=== PATIENT | female | born 1965 | race Caucasian/White ===

== ENCOUNTER 2020-02-07 00:12 | Day surgery (SDC) | payer BC, SELFPAY ==
--- NOTE | ~2020-02-07 | XR_ITS ---
EXAMINATION: XR fluoroscopy no charge INDICATION: Left ureteral stone extraction TECHNIQUE: Three intraoperative fluoroscopic images are submitted for review. Total fluoroscopic time is 8.9 seconds. COMPARISON: None available FINDINGS: Toolsmith radiographs are unremarkable. No dilated loops of bowel are evident. Surgical clips i n the right upper quadrant are likely from prior cholecystectomy. IMPRESSION: 1. . Please refer to procedure note for full details. Reviewed, dictated and finalized at location A. UNT REVIEW SPECIALIST
[2020-02-07 07:41] VITALS: BMI 28.9
[2020-02-07 12:23] VITALS: BP 141/85; PULSE 70; RESP 20; TEMP 37.7; O2SAT 98
[2020-02-07] MEDS: LACTATED RINGERS 1,000 ML 30 ML IV CONT (12:50)
--- NOTE | 2020-02-07 12:57 | P.PNAN_ITS ---
Anes - Initial Pre Proc Eval Procedure: Operation Date: 02/07/20 14:30 Proposed Procedures p Cystoscopy, Left Ureteroscopy With Stone Extraction, Left Retrograde Pyelogram, Possible Left Stent Placement - Steven Andre MD s Possible Holmium Laser Procedure - Steven Andre MD Date/Time: 02/07/20 12:57 Surgeon: Steven Andre MD Pre Op Diagnosis: Left Ureteral Stone Patient Data Age: 54 Gender: F Height: 1.6 m Weight: 74 kg Allergies Allergy/AdvReac Type Severity Reaction Status Date / Time amoxicillin [From Augmentin] Allergy Severe Rash Verified 02/07/20 07:42 clavulanic acid Allergy Severe Rash Verified 02/07/20 07:42 [From Augmentin] Home Medications Medication Instructions Recorded Confirmed Type albuterol sulfate [ProAir HFA] 1 inh INHALATION QID PRN 02/07/20 02/07/20 History Patient hx anesthesia problems: none Family hx anesthesia problems: none [facility] Past Medical History Medical History (Updated 02/07/20 @ 13:01 by Rasheed Washington DO) COPD (chronic obstructive pulmonary disease) Polycystic liver disease Social History Social History Years smoked: 25 Smoking status: Current every day smoker Tobacco type: cigarettes Substance use: never Living arrangements: with family Gender identity (if verbalized by the patient): Female Spiritual care concerns: No Anes - Eval Final PreProcedure Day of Procedure 02/07/20 12:57 Patient weight: overweight Heart: regular rate and rhythm Lungs: clear to auscultation and normal air movement Airway: Mallampati scale class II Neurological: alert and oriented Last oral intake: >/= 8 hours ASA classification: III Emergent: no Anesthetic plan: proceed Anesthesia type and monitoring: general LMA and standard monitoring Informed Consent: The patient's anesthetic plan and its attendant risks and benefits were discussed with the patient/family/POA. Questions were solicited and answers provided to the satisfaction of the patient/family/POA.
--- NOTE | 2020-02-07 13:34 | WPDHPUPDATE1 ---
History and Physical Update Update Date/Time: 02/07/20 13:34 History and Physical has been reviewed, including an updated exam of the patient. There are NO changes in the patient's condition. Risks, benefits, and alternatives have been discussed and questions answered. Patient agrees to proceed with procedure.
[2020-02-07] MEDS: ceFAZolin 2 GM/D5W 50 ML 2 GM/50 ML BAG IVPB (13:45)
[2020-02-07] MEDS: KETOROLAC 30 MG/ML VIAL (*BKC) IV PUSH (14:10)
--- NOTE | 2020-02-07 14:16 | P.OP_ITS ---
Procedure Note - Detailed Date of procedure: 02/07/20 Pre-op diagnosis: Left Ureteral Stone Post-op diagnosis: same Procedure performed: Cystoscopy, left ureteroscopy with stone extraction Description of procedure: The patient was brought to the operative suite where she is prepped and draped in a routine sterile fashion while in the dorsal lithotomy position after the uneventful induction of a general LMA anesthetic. A 19F rigid cystoscope was placed in the bladder. The patient had no evidence of urethral stricture or bladder neck contracture. The bladder mucosa was endoscopically normal without hyperemia or neoplasm. There was a single, orthotopic ureteral orifice bilaterally. A 0.035 glidewire was advanced into the left renal pelvis under fluoroscopy. The distal ureter was dilated with an 8F/10F ureteral dilator. Ureteroscopy was undertaken with a short, tapered, semi-rigid ureteroscope and the stone was extracted with ease using a 1.9F Escape disposable stone basket. Due to the ease of this manipulation I opted not to place a ureteral stent. The patient's bladder was emptied and was taken to the recovery room having tolerated this procedure well. Anesthesia: GLMA Surgeon: Steven Andre MD Scrap Kettle Tender: None Drains: No Packing: No Pathology: yes (Left ureteral stone) Complications: No immediate complications Condition: stable Disposition: PACU
[2020-02-07 14:17] VITALS: BP 128/76; PULSE 87; RESP 16; TEMP 36.2; O2SAT 100
[2020-02-07] MEDS: LIDOCAINE HCL 2% GEL UROJET 10 ML PKG MUCOUS MEM (14:25)
[2020-02-07 14:30] VITALS: BP 122/68; PULSE 72; RESP 12; O2SAT 100
[2020-02-07 14:45] VITALS: BP 131/76; PULSE 63; RESP 12; O2SAT 99
[2020-02-07 14:53] VITALS: BP 140/78; PULSE 74; RESP 14
[2020-02-07 15:20] VITALS: BP 135/70; PULSE 66; RESP 14
== END 2020-02-07 15:24 | disposition home or self-care (01) ==
PROVIDERS: PCP Internal Medicine; Visit Provider Urology
PROC: (CPT 52352; principal; 2020-02-07 14:30)
DX: N20.1 Calculus of ureter (principal); J44.9 Chronic obstructive pulmonary disease, unspecified; Q61.3 Polycystic kidney, unspecified; F17.210 Nicotine dependence, cigarettes, uncomplicated
CPT/HCPCS: 52352; 82365; 88300; A9270; C1769; C1887; J0690; J1100; J1200; J1885; J2250; J2370; J2405; J2704; J3010; J7120; Q9966

== ENCOUNTER 2020-03-16 15:55 | Outpatient (CLI) | payer BC, SELFPAY ==
--- NOTE | ~2020-03-16 | XR_ITS ---
XR abdomen/kub 1V 03/16/2020 16:19 Indication: Bilateral kidney stones Procedure: KUB Comparison: No prior studies for comparison. Findings: Multiple left renal stones. Bowel gas pattern is nonobstructive. There are cholecystectomy clips. No acute osseous abnormality. Lung bases unremarkable. Impression: 1: Left nephrolithiasis. Reviewed, dictated and finalized at location A. S AND MERCHANDISING REPRESENTATIVE Impression: 1: Left nephrolithiasis.
== END 2020-03-16 15:56 | disposition home or self-care (01) ==
PROVIDERS: PCP Internal Medicine; Visit Provider Nurse Practitioner Adult Health
DX: N20.0 Calculus of kidney (principal)
CPT/HCPCS: 74018

== ENCOUNTER 2020-11-29 14:27 | Outpatient (CLI) | payer BC, SELFPAY ==
[2020-11-29 15:42] LABS: SARS-CoV-2 RNA PCR Negative (Negative)
== END 2020-11-29 14:28 | disposition home or self-care (01) ==
LOC: CHSLAB 14:30
PROVIDERS: PCP Internal Medicine; Visit Provider Internal Medicine
DX: Z20.822 Contact with and (suspected) exposure to COVID-19 (principal)
CPT/HCPCS: C9803; U0003; U0005

== ENCOUNTER 2021-01-14 10:30 | Outpatient (CLI) | payer BC, SELFPAY ==
[2021-01-14 11:29] LABS: Influenza A QL RT-PCR Negative (Negative); Influenza B QL RT-PCR Negative (Negative); SARS-CoV-2 RNA PCR Negative (Negative)
[2021-01-14 16:50] LABS: Basophils Absolute Auto 0.09 K/mm3 (0.00-0.10); Eosinophils Absolute Auto 0.32 K/mm3 (0.02-0.50); Eosinophils Percent Auto 3.4 % (1.0-6.0); Hematocrit 42.2 % (35.0-49.0); Hemoglobin 14.4 g/dL (12.0-15.0); Immature Granulocyte Absolute 0.02 K/mm3 (0.00-0.00); Immature Granulocyte Percent A 0.2 % (0.0-0.0); Lymphocytes Absolute Auto 3.27 K/mm3 (1.10-4.50); Lymphocytes Percent Auto 34.8 % (18.0-42.0); Mean Corpuscular HGB Conc 34.1 g/dL (32.0-36.0); Mean Corpuscular Hemoglobin 31.1 pg (27.0-31.0); Mean Corpuscular Volume 91.1 fL (78.0-102.0); Monocytes Absolute Auto 0.57 K/mm3 (0.10-0.90); Monocytes Percent Auto 6.1 % (2.0-11.0); Neutrophils Absolute Auto 5.1 K/mm3 (1.7-7.2); Neutrophils Percent Auto 54.5 % (50.0-70.0); Platelet Count Result 309 K/mm3 (150-420); Red Blood Count 4.63 M/mm3 (4.20-5.40); Red Cell Distribution Width 12.9 % (11.6-14.4); White Blood Count 9.4 K/mm3 (4.8-10.8)
[2021-01-14 17:29] LABS: Alanine Aminotransferase 15 U/L (14-59); Albumin Level 3.6 g/dL (3.4-5.0); Alkaline Phosphatase 99 U/L (46-116); Anion Gap 6 mmol/L (8-16); Aspartate Amino Transferase 12 U/L (15-37); Bilirubin,Total 0.2 mg/dL (0.00-1.00); Blood Urea Nitrogen 12 mg/dL (7-18); Carbon Dioxide 32 mmol/L (21-32); Chloride 106 mmol/L (98-108); Estimated Glomerular Filt Rate > 60; Glucose 88 mg/dL (70-99); Osmolality Calculated 296 mOsm/kg (285-295); Potassium 4.3 mmol/L (3.5-5.1); Sodium 144 mmol/L (136-145); Total Protein 6.6 g/dL (6.4-8.2)
[2021-01-14 17:32] LABS: CRP < 0.5 mg/dL (0.0-0.9)
[2021-01-16 22:39] LABS: Anti Cyclic Citrullinated Pept <16 Units (<20)
== END 2021-01-14 10:31 | disposition home or self-care (01) ==
PROVIDERS: PCP Internal Medicine; Visit Provider Internal Medicine
DX: M25.50 Pain in unspecified joint (principal); R53.83 Other fatigue; R11.0 Nausea; J06.9 Acute upper respiratory infection, unspecified; Z20.822 Contact with and (suspected) exposure to COVID-19
CPT/HCPCS: 36415; 80053; 84443; 85025; 86140; 86200; 87502; C9803; U0003; U0005

== ENCOUNTER 2021-03-22 11:47 | Outpatient (CLI) | payer BC, SELFPAY ==
--- NOTE | ~2021-03-22 | CT_ITS ---
EXAMINATION: CT abdomen pelvis wo con EXAM DATE: 03/22/2021 12:11 INDICATION: Flank pain and hematuria. TECHNIQUE: Spiral CT of the abdomen and pelvis was performed without contrast. Axial, coronal and sag ittal images were reviewed. The dose-length product (DLP) for this examination was 223.56 mGy-cm. T he exposure was tailored according to patient size (auto mA exposure control), and iterative reconstr uction (ASIR) was used as additional dose reduction technique. There is no prior study for compariso n. FINDINGS: Small left, punctate right nephrolithiasis. No ureteral stones or hydronephrosis. The there are scattered small left renal cysts and hemorrhagic cysts. The uterus is not identified and has spencer gallagher been surgically resected. The bladder is unremarkable. Numerous liver hypodensities with jose ons of confluence at the dome. Similar appearance on prior studies spleen, pancreas, adrenal glands a re unremarkable. Gallbladder is unremarkable. No biliary obstruction. There is no retroperitoneal o r pelvic lymphadenopathy. Small left inguinal fat-containing hernia. The appendix is normal. The stomach and small bowel are unremarkable. There is expected amount of c olonic stool. No free intraperitoneal gas. The heart is normal in size. There are no pericardial or pleural effusions. There is left lower lobe round 1.6 cm nodule with central coarse calcificatio n, granuloma. There are no osteoblastic or osteolytic lesions identified. IMPRESSION: 1. Small left, punctate right nephrolithiasis. 2. Numerous liver cysts. 3. No acute intra-abdominal findings. Reviewed, dictated and finalized at location B. ERLESS GRINDER TENDER
--- NOTE | ~2021-03-22 | XR_ITS ---
XR abdomen/kub 1V DATE: 03/22/2021 12:15 INDICATION: Acute left flank pain. TECHNIQUE: AP projection, 2 views history of kidney stones. COMPARISON: March 22, [address] abdomen pelvis FINDINGS: Surgical clips, right upper quadrant, consistent with cholecystectomy. Small calcifications overlie the lower pole left kidney, likely corresponding to nonobstructive lower pole left renal jose de jesus culi documented on today's CT abdomen pelvis examination. The psoas shadows are intact. No visceromegaly is evident. There is a prominent of fecal material in the ascending and transverse colon but no bowel obstruction . IMPRESSION: Probable faintly calcified lower pole left renal stones Reviewed, dictated and finalized at Location A. Reviewed, dictated and finalized at location A. RVISOR OF INSTRUCTION
== END 2021-03-22 11:48 | disposition home or self-care (01) ==
LOC: ANHIMG 11:55
PROVIDERS: PCP Internal Medicine; Visit Provider Urology
DX: N20.0 Calculus of kidney (principal); K76.89 Other specified diseases of liver
CPT/HCPCS: 74018; 74176

== ENCOUNTER 2021-05-13 17:05 | Emergency (ER) | payer BC, SELFPAY ==
--- NOTE | ~2021-05-13 | XR_ITS ---
EXAMINATION: XR chest 1V portable Exam Date/Time: 05/13/2021 17:25 CDT CLINICAL HISTORY: LT sided chest pain with SOB x 1 day Comparison: CT abdomen and pelvis 03/22/2021, chest 02/14/2019, XRT 06/11/2018 RESULT: Lines, tubes, and devices: Soft tissue anchors in the right humeral head. Lungs and pleura: Left lower lobe granuloma. No focal consolidation, large effusion, or pneumothorax . Cardiomediastinal silhouette: Stable cardiomediastinal silhouette. Other: No acute osseous or upper abdominal finding. IMPRESSION: No acute cardiopulmonary process. Reviewed, dictated and finalized at location K.
--- NOTE | ~2021-05-13 | CT_ITS ---
EXAMINATION: CTA chest PE protocol DATE: 05/13/2021 18:36 INDICATION: Left-sided chest pain with positive d-dimer. TECHNIQUE: Computed tomography angiography (CTA) of the chest was performed with 100 mL Omnipaque-350 intravenous contrast timed to evaluate the pulmonary arteries. Coronal maximum intensity projection 3D-reconstructions were created by the technologist. The dose-length product (DLP) was 306.52 mGy-cm. Automated exposure control and iterative reconstruction technique were employed. COMPARISON: CT chest 02/14/2019. FINDINGS: FINDINGS: Study quality: Slightly limited by late contrast phase, overall adequate. Pulmonary arteries: No pulmonary embolus. Thoracic aorta: Normal. Lung parenchyma and airways: Stable granulomas and mild emphysematous change. Thoracic inlet, axillae and chest wall: Unremarkable. Mediastinum: Normal. Heart and pericardium: No cardiomegaly or pericardial effusion. Coronary artery calcifications: None.. Pleura: Unremarkable. Upper abdomen: Small fat-containing Bochdalek hernia on the left. Innumerable hepatic and renal cysts . Previously described left nephrolith is no longer seen. Bones: No acute finding. IMPRESSION: No CT evidence of pulmonary embolus. Reviewed, dictated and finalized at location K.
[2021-05-13 17:10] VITALS: BP 131/85; PULSE 75; RESP 18; TEMP 36.4; O2SAT 98
--- NOTE | 2021-05-13 17:11 | ED.CHESTPAIN ---
HPI - Chest Pain General Chief Complaint: Chest Pain Stated Complaint: chest pain, numbness in jaw Time Seen by Provider: 05/13/21 17:11 Source: patient History of Present Illness HPI narrative: 50-year-old female, smoker with a history of COPD, polycystic liver disease presents to the ER with -- left-sided chest pain since last night. The pain is intermittent and unprovoked. Pain lasts for 1-2 minutes. The pain radiates to the left neck and left arm. -- Patient has nausea but no vomiting. -- Patient is tearful and anxious. She has had a history of a stress test in the past. MD complaint: chest pain Onset (ago): day(s) ( Started last night.) Timing of current episode: episodic Prior episodes: No Onset: during rest Pain location: left chest Pain radiation: left arm and neck Severity: moderate Quality: aching Relieving factors: nothing Exacerbating factors: nothing Associated symptoms: nausea Treatment prior to arrival: none Risk Factors Coronary artery disease risk factors: smoking history Related Data On Oral Contraceptives: No Home Medications Medication Instructions Recorded Confirmed No Home Medications 05/13/21 05/13/21 Allergies Allergy/AdvReac Type Severity Reaction Status Date / Time amoxicillin [From Augmentin] Allergy Severe Rash Verified 05/13/21 17:19 clavulanic acid Allergy Severe Rash Verified 05/13/21 17:19 [From Augmentin] Review of Systems Review of Systems: All systems reviewed & are unremarkable except as noted in HPI and below Constitutional: Constitutional: Reports as per HPI and Reports no additional constitutional complaints Eyes: Eyes: Reports as per HPI and Reports no additional eye complaints ENT: Reports system reviewed and no additional complaints, except as documented and Reports as per HPI Cardiovascular: Cardiovascular: Reports as per HPI, Reports no additional cardiovascular complaints, Reports chest pain and Reports radiating jaw, neck or arm pain Respiratory: Respiratory: Reports as per HPI and Reports no additional respiratory complaints Gastrointestinal: Gastrointestinal: Reports as per HPI, Reports no additional gastrointestinal complaints and Reports nausea Genitourinary: Genitourinary: Reports no additional female genitourinary complaints and Reports as per HPI Musculoskeletal: Musculoskeletal: Reports no additional musculoskeletal complaints and Reports as per HPI Integumentary/Breasts: Skin/Breast: Reports system reviewed and no additional complaints, except as docu and Reports as per HPI Neurologic: Reports system reviewed and no additional complaints, except as documented and Reports as per HPI Psychiatric: Psychiatric: Reports no additional psychiatric complaints and Reports anxiety Endocrine: Endocrine: Reports no additional endocrine complaints and Reports as per HPI Hematologic/Lymphatic: Hematologic/Lymphatic: Reports no additional hematologic/lymphatic complaints and Reports as per HPI Allergic/Immunologic: Allergic/Immunologic: Reports no additional allergic/immunologic complaints and Reports as per HPI [facility] Past Medical History Medical History COPD (chronic obstructive pulmonary disease) Polycystic liver disease Social History Social History Years smoked: 25 Smoking status: Current every day smoker Tobacco type: cigarettes Substance use: never Gender identity (if verbalized by the patient): Female Spiritual care concerns: No Exam Const: General: no acute distress and alert Orientation/consciousness: patient oriented x3 HENMT: Head: normal to inspection Eyes: Conjunctivae: conjunctivae normal Pupils: Equal, round and reactive pupils present Neck: Neck: normal visual inspection, no lymphadenopathy and no meningeal signs Other: tenderness on palpation of the left sternomastoid muscle. Chest: Chest pal
--- NOTE | 2021-05-13 17:12 | ECG_ITS ---
Measurements Intervals [place] Rate: 70 P: 71 OR: 143 QRS: 78 QRSD: 101 T: 60 QT: 363 QTc: 392 Interpretive Statements SINUS RHYTHM COMPARED TO ECG 05/27/2018 07:42:15 NO SIGNIFICANT CHANGES Electronically Signed On 05-15-2021 14:13:55 CDT by Yareli Muñoz M.D.
[2021-05-13] MEDS: ALPRAZolam (*CRX) 0.5 MG TABLET PO (17:28)
[2021-05-13] MEDS: ASPIRIN 81 MG CHEWABLE TABLET 324 MG PO (17:28)
[2021-05-13 17:39] LABS: Basophils Absolute Auto 0.06 K/mm3 (0.00-0.10); Basophils Percent Auto 0.7 % (0.0-1.0); Eosinophils Absolute Auto 0.21 K/mm3 (0.02-0.50); Eosinophils Percent Auto 2.4 % (1.0-6.0); Hematocrit 41.5 % (35.0-49.0); Hemoglobin 13.3 g/dL (12.0-15.0); Immature Granulocyte Absolute 0.03 K/mm3 (0.00-0.00); Immature Granulocyte Percent A 0.3 % (0.0-0.0); Lymphocytes Absolute Auto 2.47 K/mm3 (1.10-4.50); Lymphocytes Percent Auto 27.7 % (18.0-42.0); Mean Corpuscular Volume 96.7 fL (78.0-102.0); Mean Platelet Volume 10.2 fl (9.2-11.8); Monocytes Absolute Auto 0.61 K/mm3 (0.10-0.90); Monocytes Percent Auto 6.8 % (2.0-11.0); Neutrophils Absolute Auto 5.5 K/mm3 (1.7-7.2); Neutrophils Percent Auto 62.1 % (50.0-70.0); Platelet Count Result 269 K/mm3 (150-420); Red Blood Count 4.29 M/mm3 (4.20-5.40); Red Cell Distribution Width 13.5 % (11.6-14.4); White Blood Count 8.9 K/mm3 (4.8-10.8)
[2021-05-13 17:55] LABS: Partial Thromboplastin Time 28.5 SEC (23.90-30.70); Prothrombin Time 10.2 Seconds (9.50-12.10)
[2021-05-13 17:59] LABS: D Dimer 0.57 mg/L (0.19-0.50)
[2021-05-13 18:00] VITALS: BP 125/77; PULSE 66; RESP 16; TEMP 36.1; O2SAT 97
[2021-05-13 18:01] LABS: SARS-CoV-2 Ag Negative (Negative)
[2021-05-13 18:02] LABS: Lactic Acid Reflex 0.7 mmol/L (0.4-2.0)
[2021-05-13 18:05] LABS: Alanine Aminotransferase 16 U/L (14-59); Albumin Level 3.3 g/dL (3.4-5.0); Alkaline Phosphatase 93 U/L (46-116); Anion Gap 6 mmol/L (8-16); Aspartate Amino Transferase < 10 U/L (15-37); Bilirubin,Total 0.2 mg/dL (0.00-1.00); Blood Urea Nitrogen 19 mg/dL (7-18); Calcium 8.6 mg/dL (8.5-10.1); Carbon Dioxide 30 mmol/L (21-32); Chloride 107 mmol/L (98-108); Estimated CRCL calculation 73 ml/min; Estimated Glomerular Filt Rate > 60; Glucose 98 mg/dL (70-99); NT Pro B Type Natriuretic Pept 13 pg/mL (0-125); Osmolality Calculated 298 mOsm/kg (285-295); Potassium 3.7 mmol/L (3.5-5.1); Sodium 143 mmol/L (136-145); Thyroid Stimulating Hormone 0.73 uIU/mL (0.36-3.74); Total Protein 6.2 g/dL (6.4-8.2); Troponin I 4.3 ng/L (0.00-60.4)
[2021-05-13] MEDS: ONDANSETRON HCL ODT 4 MG TABLET PO (18:18)
[2021-05-13] MEDS: LACTATED RINGERS 1,000 ML 500 ML IV CONT (18:41)
[2021-05-13 19:18] VITALS: BP 123/59; PULSE 63; RESP 16; O2SAT 95
[2021-05-13 19:42] VITALS: BP 134/62; PULSE 70; RESP 16; TEMP 36.7; O2SAT 97
== END 2021-05-13 19:57 | disposition home or self-care (01) ==
PROVIDERS: Emergency Provider Internal Medicine Critical Care Medicine; PCP Internal Medicine
DX: R07.9 Chest pain, unspecified (principal); F41.9 Anxiety disorder, unspecified; Z20.822 Contact with and (suspected) exposure to COVID-19
CPT/HCPCS: 36415; 71045; 71275; 80053; 83605; 83880; 84443; 84484; 85025; 85380; 85610; 85730; 87426; 93005; 96360; 99284; A9270; C9803; J7120; Q9967

== ENCOUNTER 2022-04-14 08:11 | Outpatient (CLI) | payer BC, SELFPAY ==
--- NOTE | ~2022-04-14 | XR_ITS ---
EXAMINATION: XR foot RT min 3V DATE: 04/14/2022 08:29 INDICATION: Right foot pain TECHNIQUE: Dorsoplantar, lateral, and 2 oblique views of the right foot were obtained. COMPARISON: None. FINDINGS: There is no acute fracture. There is mild to moderate osteoarthritis at the second through fourth tarsometatarsal joints. There is also mild osteoarthritis of multiple interphalangeal joints. The soft tissues are unremarkable. IMPRESSION: 1. Polyarticular osteoarthritis. Reviewed, dictated and finalized at location A. MACY TECHNICIAN PER DIEM
== END 2022-04-14 08:12 | disposition home or self-care (01) ==
LOC: CHSIMG 08:14
PROVIDERS: PCP Internal Medicine; Visit Provider Internal Medicine
DX: M79.671 Pain in right foot (principal); M19.071 Primary osteoarthritis, right ankle and foot
CPT/HCPCS: 73630

== ENCOUNTER 2022-06-10 18:23 | Emergency (ER) | payer BC, SELFPAY ==
--- NOTE | ~2022-06-10 | CT_ITS ---
EXAMINATION: CT abdomen pelvis w con DATE: 06/10/2022 20:55 INDICATION: recent stones, R flank as well as RLQ TTP TECHNIQUE: Computed tomography (CT) of the abdomen and pelvis was performed with 100 mL Omnipaque-350 intravenous contrast. Automated exposure control and iterative reconstruction technique were employe d. The dose-length product was 618.68 mGy-cm. COMPARISON: 03/22/2021. FINDINGS: Lower thorax: Lingular hamartoma. Uncomplicated small fat-containing left diaphragmatic hernia. Liver: Innumerable cysts and lesions that are too small to characterize but also likely represent cys ts. Biliary/Gallbladder: Gallbladder is absent. No bile duct dilation. Pancreas: No mass or duct dilation. Spleen: Normal. Adrenals:No mass. Kidneys: Innumerable cysts and lesions that are too small to characterize but also likely represent c ysts. Bilateral nonobstructing calculi. No obstructing calcification, suspicious mass, or hydronephro sis. GI tract: Mild distal esophageal and gastric wall edema. No small or large bowel dilation. Normal mary endix. Diverticulosis without diverticulitis. Mesentery/Peritoneum: No ascites, mass, or free air. Retroperitoneum: No mass. Atherosclerotic abdominal aortic and/or arterial calcifications. Pelvis: Absent uterus. Normal urinary bladder. Soft Tissues: Soft tissues and body wall unremarkable. Bones: No acute osseous finding. IMPRESSION: Mild esophagitis/gastritis. Otherwise, no acute abdominopelvic process detected Reviewed, dictated and finalized at location K.
[2022-06-10 18:26] VITALS: BP 130/82; PULSE 64; RESP 20; TEMP 36.7; O2SAT 98
[2022-06-10 18:40] LABS: Basophils Absolute Auto 0.1 K/mm3 (0.0-0.1); Basophils Percent Auto 0.6 % (0.2-1.2); Eosinophils Absolute Auto 0.3 K/mm3 (0-0.3); Eosinophils Percent Auto 3.4 % (0-4.4); Hematocrit 40.6 % (37.0-47.0); Hemoglobin 13.2 g/dL (12.0-15.0); Immature Granulocyte Absolute 0.02 K/mm3 (0.00-0.031); Immature Granulocyte Percent A 0.2 % (0-0.5); Lymphocytes Absolute Auto 2.81 K/mm3 (0.9-3.2); Lymphocytes Percent Auto 30.4 % (18.3-44.2); Mean Corpuscular HGB Conc 32.5 g/dl (32-36); Mean Corpuscular Hemoglobin 30.6 pg (26-34); Mean Platelet Volume 10.1 fl (7.4-10.4); Monocytes Absolute Auto 0.6 K/mm3 (0.1-0.6); Monocytes Percent Auto 6.9 % (2.6-8.5); Neutrophils Absolute Auto 5.4 K/mm3 (1.3-6.7); Neutrophils Percent Auto 58.5 % (45.5-73.1); Platelet Count Result 249 k/mm3 (150-375); Red Blood Count 4.32 M/mm3 (4.2-5.4); Red Cell Distribution Width 13.5 % (11.5-14.5); White Blood Count 9.3 K/mm3 (4.5-10.0)
[2022-06-10 18:50] LABS: Alanine Aminotransferase 17 U/L (6-35); Alkaline Phosphatase 91 U/L (38-126); Anion Gap 3 mmol/L (8-16); Aspartate Amino Transferase 19 U/L (14-36); Bilirubin,Total 0.4 mg/dL (0.2-1.3); Blood Urea Nitrogen 18 mg/dL (7-17); Calcium 9.1 mg/dL (8.4-10.2); Carbon Dioxide 33 mmol/L (22-30); Chloride 103 mmol/L (98-107); Estimated CRCL calculation 90 ml/min; Estimated Glomerular Filt Rate > 60; Glucose 102 mg/dL (65-110); Potassium 4.1 mmol/L (3.4-5.0); Sodium 139 mmol/L (137-145)
[2022-06-10 20:06] VITALS: BP 119/78; PULSE 60; RESP 15; TEMP 36.6; O2SAT 95
--- NOTE | 2022-06-10 20:17 | ED.ABDPAIN ---
HPI - Abdominal Pain General Chief Complaint: Abdominal Pain <TAMELA Seay Last Filed: 06/11/22 03:17> Stated Complaint: R. flank pain <TAMELA Seay Last Filed: 06/11/22 03:17> Time Seen by Provider: 06/10/22 19:55 <TAMELA Seay Last Filed: 06/11/22 03:17> Source: patient <TAMELA Seay Last Filed: 06/11/22 03:17> Mode of arrival: ambulatory <TAMELA Seay Last Filed: 06/11/22 03:17> Limitations: no limitations <TAMELA Seay Last Filed: 06/11/22 03:17> History of Present Illness HPI narrative: This is a 56-year-old female who presents to the ED with chief complaint of right flank pain x2 days. Patient states she was seen at an outside ER 3 days ago for left-sided renal stone. She was given pain meds, Zofran, Flomax but is now having right-sided symptoms. States that the pain radiates from the right flank into the right lower quadrant. Reports nausea and vomiting. Denies fevers, chills, diarrhea, chest pain, shortness of breath, cough. <TAMELA Seay Last Filed: 06/11/22 03:17> Related Data Home Medications: Home Medications Medication Instructions Recorded Confirmed No Home Medications 05/13/21 05/13/21 <TAMELA Seay Last Filed: 06/11/22 03:17> Allergies/Adverse Reactions: Allergies Allergy/AdvReac Type Severity Reaction Status Date / Time amoxicillin [From Augmentin] Allergy Severe Rash Verified 05/13/21 17:19 clavulanic acid Allergy Severe Rash Verified 05/13/21 17:19 [From Augmentin] <TAMELA Seay Last Filed: 06/11/22 03:17> Review of Systems Review of Systems: CONSTITUTIONAL: Denies fever, chills, or sweats. EYES: Denies visual changes, redness, or discharge. ENT: Denies rhinorrhea, congestion, sore throat, or otalgia. CARDIOVASCULAR: Denies chest pain, palpitations, or edema. RESPIRATORY: Denies cough or dyspnea. GASTROINTESTINAL: See HPI GENITOURINARY: Denies dysuria or hematuria. SKIN: Denies rash or itching. MUSCULOSKELETAL: Denies back pain, joint pain, or myalgia. NEUROLOGIC: Denies headache, numbness, dizziness, or weakness. PSYCHIATRIC: Denies anxiety or depression. <Junior Corley PA-C - Last Filed: 06/11/22 03:17> [facility] Past Medical History Medical History: Medical History COPD (chronic obstructive pulmonary disease) Polycystic liver disease <Junior Corley PA-C - Last Filed: 06/11/22 03:17> Social History Social History: Social History Years smoked: 25 Smoking status: Current every day smoker Tobacco type: cigarettes Substance use: never Living arrangements: with family Gender identity (if verbalized by the patient): Female Spiritual care concerns: No <Junior Corley PA-C - Last Filed: 06/11/22 03:17> Exam Narrative: GENERAL: Appears in pain. No diaphoresis. HEAD: Normocephalic, atraumatic. EYES: PERRLA and EOMI. ENT: Nares clear, no rhinorrhea or epistaxis. Mucous membranes moist. Oropharynx without tonsillar hypertrophy exudate or other lesions. NECK: Supple. No adenopathy or masses. CHEST: No respiratory distress. Clear to auscultation. No wheezes rales or rhonchi HEART: Regular rate and rhythm. No murmur heard. Normal peripheral pulses. ABDOMEN: Right flank tenderness. Also has right lower quadrant tenderness. Soft, nondistended, normal active bowel sounds. Negative peritoneal signs. EXTREMITIES: Normal range of motion. No edema. SKIN: Warm, dry, no rash. NEURO: Alert and oriented x3. No focal deficits. PSYCH: Normal mood and affect. <Junior Corley PA-C - Last Filed: 06/11/22 03:17> Course PROMOTIONAL DEMONSTRATOR/PA Physician Supervision This is a was performed by both a physician and an APC. I performed all aspects of the MDM as documented w/ the following additions: 56-year-old female presenti
[2022-06-10 20:24] LABS: Appearance Urine Clear (Clear); Bacteria Urine None Seen /hpf; Bilirubin Urine Negative (Negative); Color Urine Yellow (Yellow); Glucose Urine UA Negative (Negative); Ketones Urine Negative (Negative); Leukocyte Esterase Ur Negative LEU/UL (Negative); Nitrate Urine Negative (Negative); Non Pathogenic Casts 0-2; Protein Urine Negative (Negative); Squamous Epithelial Cell Urine None seen /hpf (Few); WBC Urine 0-5 /hpf; pH Urine 6.5 (5.0-9.0)
[2022-06-10 20:26] LABS: Add Urine Microscopic? YES
[2022-06-10] MEDS: METOCLOPRAMIDE HCL INJ 10 MG/2 ML VIAL IV PUSH (20:31)
[2022-06-10] MEDS: HYDROmorphone HCL INJ (*CRX) 1 MG/ML SYR 0.5 MG IV PUSH (20:33)
[2022-06-10 20:38] VITALS: BP 121/81; PULSE 67; RESP 16; O2SAT 94
[2022-06-10 21:11] LABS: Lipase 119 U/L (23-300)
[2022-06-10 21:43] VITALS: BP 113/78; PULSE 50; O2SAT 96
[2022-06-10 23:07] VITALS: BP 127/85; PULSE 65; RESP 15; TEMP 36.6; O2SAT 96
== END 2022-06-10 23:08 | disposition home or self-care (01) ==
PROVIDERS: Emergency Medicine; Emergency Provider Physician Assistant; PCP Internal Medicine
DX: K76.9 Liver disease, unspecified (principal); J44.9 Chronic obstructive pulmonary disease, unspecified; Q44.6 Cystic disease of liver; F17.210 Nicotine dependence, cigarettes, uncomplicated; K29.70 Gastritis, unspecified, without bleeding; K20.90 Esophagitis, unspecified without bleeding
CPT/HCPCS: 36415; 74177; 80053; 81001; 83690; 85025; 96374; 96375; 99284; J1170; J2765; Q9967

== ENCOUNTER 2023-02-10 15:14 | Outpatient (CLI) | payer BC, SELFPAY ==
--- NOTE | ~2023-02-10 | XR_ITS ---
XR lumbar spine 2-3V DATE: 02/10/2023 15:36 INDICATION: Low back pain for 8 months, radiating up the entire back TECHNIQUE: AP, lateral, coned lateral lumbosacral views COMPARISON: None FINDINGS: There is mild dextroscoliosis of the lumbar spine. There is diffuse osteopenia. Included lower thoracic and lumbar pedicles appear intact. No lumbar spine fracture or bone destructi on is detected. There is moderate degenerative disc disease at L1-2, L2-3 and moderately severe degenerative disc dis ease at L3-4. Surgical clips, right upper quadrant, consistent with cholecystectomy. IMPRESSION: Osteopenia Mild lumbar dextro scoliosis Multilevel degenerative disc disease, most prominent/moderately severe at L3-4 Reviewed, dictated and finalized at location L. 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
[2023-02-10 15:29] LABS: Add Urine Microscopic? NO; Appearance Urine Clear (Clear); Bilirubin Urine Negative (Negative); Blood Urine Negative (Negative); Color Urine Yellow (Yellow); Glucose Urine UA Negative (Negative); Ketones Urine Negative (Negative); Leukocyte Esterase Ur Negative LEU/UL (Negative); Nitrate Urine Negative (Negative); Protein Urine Negative (Negative); Specific Grav Ur 1.025 (1.010-1.020); Urobilinogen Urine 0.2 mg/dL (0.2-1.0)
[2023-02-10 15:30] LABS: Basophils Absolute Auto 0.06 K/mm3 (0.00-0.10); Basophils Percent Auto 0.7 % (0.0-1.0); Eosinophils Absolute Auto 0.23 K/mm3 (0.02-0.50); Eosinophils Percent Auto 2.6 % (1.0-6.0); Hematocrit 43.1 % (35.0-49.0); Hemoglobin 14.1 g/dL (12.0-15.0); Immature Granulocyte Absolute 0.03 K/mm3 (0.00-0.00); Immature Granulocyte Percent A 0.3 % (0.0-0.0); Lymphocytes Percent Auto 29.5 % (18.0-42.0); Mean Corpuscular HGB Conc 32.7 g/dL (32.0-36.0); Mean Corpuscular Hemoglobin 31.1 pg (27.0-31.0); Mean Corpuscular Volume 95.1 fL (78.0-102.0); Mean Platelet Volume 10.4 fl (9.2-11.8); Monocytes Absolute Auto 0.49 K/mm3 (0.10-0.90); Monocytes Percent Auto 5.6 % (2.0-11.0); Neutrophils Absolute Auto 5.4 K/mm3 (1.7-7.2); Neutrophils Percent Auto 61.3 % (50.0-70.0); Platelet Count Result 308 K/mm3 (150-420); Red Blood Count 4.53 M/mm3 (4.20-5.40); Red Cell Distribution Width 13.2 % (11.6-14.4); White Blood Count 8.8 K/mm3 (4.8-10.8)
[2023-02-10 16:21] LABS: Alanine Aminotransferase 21 U/L (14-59); Albumin Level 3.8 g/dL (3.4-5.0); Alkaline Phosphatase 101 U/L (46-116); Anion Gap 5 mmol/L (8-16); Aspartate Amino Transferase 12 U/L (15-37); Bilirubin,Total 0.5 mg/dL (0.00-1.00); Blood Urea Nitrogen 13 mg/dL (7-18); CRP 0.5 mg/dL (0.0-0.9); Calcium 9.4 mg/dL (8.5-10.1); Carbon Dioxide 34 mmol/L (21-32); Chloride 104 mmol/L (98-108); Estimated Glomerular Filt Rate > 60; Glucose 77 mg/dL (70-99); Osmolality Calculated 295 mOsm/kg (285-295); Potassium 4.3 mmol/L (3.5-5.1); Sodium 143 mmol/L (136-145); Total Protein 6.8 g/dL (6.4-8.2)
== END 2023-02-10 15:15 | disposition home or self-care (01) ==
LOC: CHSLAB 15:15
PROVIDERS: PCP Internal Medicine; Visit Provider Internal Medicine
DX: M54.50 Low back pain, unspecified (principal); M85.88 Other specified disorders of bone density and structure, other site; M41.86 Other forms of scoliosis, lumbar region; M51.36 Other intervertebral disc degeneration, lumbar region
CPT/HCPCS: 36415; 72100; 80053; 81003; 85025; 86140

== ENCOUNTER 2023-02-12 08:25 | Outpatient (RCR) | payer BC, SELFPAY ==
--- NOTE | 2023-02-12 10:01 | OPREHPOC ---
Outpatient Therapy Plan of Care This is a Multidisciplinary Plan of Care that may contain components documented by all disciplines (PT, OT, and ST.) PT Problem 1 PT Problem #1 Knowledge Deficit PT Goal 1 Goal Patient to demonstrate independence with HEP Target Visit 5 PT Problem 2 PT Problem #2 Pain PT Goal 1 Goal 1. Patient to report highest pain at 2/10 2. Patient to report ability to sleep with no disturbance due to low back pain Target Visit 10 PT Problem 3 PT Problem #3 Impaired Range of Motion PT Goal 1 Goal Patient to demonstrate full lumbar ROM with no increase in low back pain in order to return to picking up objects from floor to complete house hold tasks Target Visit 10 PT Problem 4 PT Problem #4 Impaired Strength PT Goal 1 Goal Patient to demonstrate 4+/5 B hip strength to return to prolonged ambulation for grocery shopping Target Visit 10 PT Problem 5 PT Problem #5 Impaired Functional Mobil PT Goal 1 Goal 1. Patient to score 20% improvement on Back Index 2. Patient to report ability to complete house hold tasks with no increase in low back pain Target Visit 10
--- NOTE | 2023-02-12 10:02 | PTOPEVAL1 ---
Assessment and note entered by Christina White DPT Evaluation Information Assessment Status Evaluation Diagnosis low back pain Onset 02/11/23 Subjective Information Patient reports she has chronic lower back pain. She reports the last few months pain has increased with no injury. She reports she follows up with pain management on 02/24/23. She reports pain primarily is located at the low back with occasional radiating up the spine. She reports difficulty with standing for house work, sleeping, sitting in a chair for long periods of time and ambulating for community tasks. 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 Reported Pain Level Pain Score 6: Self Report Assessment PT Clinical Summary Mrs. Krause is a 57 year old female who presents to PT with low back pain consistent with degenerative disc disease in the lumbar spine. She demonstrates decreased LE strength and flexibility as well as decreased lumbar impairing her ability to sleep, grocery shop, and complete house hold tasks. She would benefit from skilled PT to address impairments and return to PLOF. Plan of Care Interventions Electrical Stimulation,Gait Training,Hot Pack/Cold Pack,Manual Therapy,Mechanical Traction,Neuro Re- education,Patient/Caregiver Educati,Therapeutic Activities,Therapeutic Exercise PT Services Indicated Yes Treatment Frequency and 2x weekly for 10 visits Duration These treatments will address the objective and functional deficits as defined above. The patient will be advanced safely and appropriately in order for the patient to progress towards his/her prior level of function. Additional exercises will be introduced and as well as a comprehensive home exercise program upon discharge, if needed, ?to ensure carryover of functional gains achieved in the clinic. This treatment plan has been reviewed and agreement upon by the patient.
--- NOTE | 2023-02-23 16:35 | PCPTNOTE ---
pt called and cancelled giving no reason
--- NOTE | 2023-03-11 12:58 | PCPTNOTE ---
pt no show. contacted pt stating she forgot. on for fri.
--- NOTE | 2023-03-18 08:15 | PCPTNOTE ---
No call no show this date. Voicemail left for patient.
--- NOTE | 2023-03-20 07:04 | PCPTNOTE ---
Patient cancelled session today due to her work schedule.
--- NOTE | 2023-05-14 14:38 | PCPTNOTE ---
patient did not return for follow up visits. she will be discharged at this time
== END 2023-03-13 23:59 | disposition home or self-care (01) ==
LOC: CHSPT 08:25
PROVIDERS: PCP Internal Medicine; Visit Provider Internal Medicine
DX: M54.50 Low back pain, unspecified (principal)
CPT/HCPCS: 97012; 97014; 97110; 97161; G0283

== ENCOUNTER 2023-04-02 08:20 | Outpatient (CLI) | payer BC, SELFPAY ==
--- NOTE | ~2023-04-02 | MR_ITS ---
MRI of the lumbar spine Clinical History: Back pain, radiating to lower extremity Technique: Axial T2-weighted images, and sagittal T1-weighted, T2-weighted, and and T2 fat-sat images were acquired. Findings: No acute fracture seen. There is 5 mm retrolisthesis of L3 over L4. There is 7 mm retrolist hesis of L5 over S1. No suspicious bone marrow signal abnormality seen. There are reactive marrow sig nal changes about the L3-L4 disc space due to underlying degenerative disc disease. At L1-L2, there is moderate to advanced degenerative disc narrowing. There is minimal disc bulge with mild facet arthropathy. No central canal stenosis or neural foraminal narrowing. At L2-L3, there is moderate degenerative disc narrowing. No significant disc bulge seen. No spinal ca nal stenosis or neural foraminal narrowing. L3-L4, there is advanced degenerative disc narrowing. There is minimal disc bulge and mild facet arth ropathy. No central canal stenosis. There is minimal left neural foraminal narrowing. Right neural fo ramen preserved. At L4-L5, there is mild disc bulge with mild facet arthropathy. No central canal stenosis or definite neural foraminal narrowing. At L5-S1, there is mild disc bulge and mild facet arthropathy. No central canal stenosis. There is mo derate right neural foraminal narrowing, and mild to moderate left neural foraminal narrowing. Paravertebral soft tissues are unremarkable. Impression: Mild degenerative spondylosis overall, as detailed above. 5 mm retrolisthesis of L3 over L4. 7 mm retrolisthesis of L5 over S1. Reviewed, dictated and finalized at [facility]. ING EDITOR Impression: Mild degenerative spondylosis overall, as detailed above. 5 mm retrolisthesis of L3 over L4. 7 mm retrolisthesis of L5 over S1.
== END 2023-04-02 08:21 | disposition home or self-care (01) ==
PROVIDERS: PCP Internal Medicine; Visit Provider Nurse Practitioner Family
DX: M54.59 Other low back pain (principal); M43.06 Spondylolysis, lumbar region
CPT/HCPCS: 72148

== ENCOUNTER 2023-08-17 11:43 | Outpatient (CLI) | payer BC, SELFPAY ==
--- NOTE | ~2023-08-17 | XR_ITS ---
Right ankle Technique: AP, oblique, and lateral views were obtained. Clinical History: Inversion injury Findings: No acute fracture or dislocation is seen. Chronic avulsion fracture fragments are present a t the medial and lateral malleolar tips. Osseous alignment is anatomic. Ankle mortise and other visua lized joint spaces are preserved. Soft tissues are otherwise unremarkable. Impression: No acute abnormality. Chronic fracture fragment or secondary ossification centers at the tip of the m edial and lateral malleoli. Reviewed, dictated and finalized at location M. Impression: No acute abnormality. Chronic fracture fragment or secondary ossification cente rs at the tip of the medial and lateral malleoli.
--- NOTE | ~2023-08-17 | XR_ITS ---
Right foot Technique: AP, oblique, and lateral views were obtained. Clinical History: Injury Findings: No acute fracture or dislocation is seen. Osseous alignment is anatomic. Joint spaces are p reserved without erosive or degenerative change. Soft tissues are unremarkable. Impression: Unremarkable right foot radiographs. Reviewed, dictated and finalized at location . Impression: Unremarkable right foot radiographs.
== END 2023-08-17 11:44 | disposition home or self-care (01) ==
LOC: CHSIMG 11:45
PROVIDERS: PCP Internal Medicine; Visit Provider Internal Medicine
DX: S99.811A Other specified injuries of right ankle, initial encounter (principal); M89.9 Disorder of bone, unspecified
CPT/HCPCS: 73610; 73630

== ENCOUNTER 2024-09-12 08:17 | Outpatient (CLI) | payer BC, SELFPAY ==
--- NOTE | ~2024-09-12 | XR_ITS ---
XR elbow LT min 3V 09/12/2024 08:30 Indication: 3 views left elbow Procedure: 08/24/2024 Comparison: 08/24/2024 Findings: There is a mildly depressed radial head fracture. Moderate joint effusion. No other fractur e or traumatic malalignment. Impression: 1: Stable appearance to depressed radial head fracture. Reviewed, dictated and finalized at location A. Impression: 1: Stable appearance to depressed radial head fracture.
--- OUTSIDE RECORDS SUMMARY | 2024-09-12 08:25 | XMS_ITS | Referral Summary ---
Author Organization [facility] Address [address] [place] [address] Care Team Providers Care Deaf Teacher Name Role Phone Joey Zamora MD Primary Care Provider [phone] Encounters Date Type Department Care Team Description 08/22/2024 Telephone [facility] Orthopedics and Sports Medicine [address] [facility] [address] [place] [phone] Chris Casey MD Arm Injury 08/21/2024 Ancillary Procedure [facility] Outside Films from Last 3 Months Allergies No known active allergies Medications albuterol HFA (PROVENTIL HFA,VENTOLIN HFA,PROAIR HFA) 90 mcg/actuation inhaler Inhale 1-2 puffs as needed 7 Active ondansetron ODT (ZOFRAN-ODT) 4 mg disintegrating tablet [address] (NexIUM) 40 mg capsule Take 1 capsule (40 mg total) by mouth 2 (two) times a day before breakfast and dinner 180 capsule 3 3 Active Active Problems Problem Noted Date Diagnosed Date Personal history of colonic polyps 10/24/2022 Polycystic kidney disease 07/22/2022 Polycystic liver disease 07/22/2022 Gastrocnemius strain, right, initial encounter 1 02/25/2021 07/25/2022 Duodenal ulcer 07/30/2021 Overview (07/30/2021): Added automatically from request for surgery [id number] Osteoarthritis of right patellofemoral joint 11/202107/25/2022 Complex tear of medial menis cus of right knee as current injury 06/18/2021 07/25/2022 Loose, body, joint, knee, right 05/09/2021 07/25/2022 Rotator cuff tendonitis, left 01/18/2020 Biceps tendonitis on left 01/18/20202022 S/P ACL repair 08/02/2019 07/25/2022 Rupture of anterior cruciate ligament of right k nee 06/15/2019 07/25/2022 Other chest pain 06/28/2018 07/25/2022 Nicotine dependence 10/14/2017 07/25/2022 Asthma 12/08/2016 07/25/2022 Asthma with COPD 12/08/2016 07/25/2022 Bronchitis 12/08/2016 07/25/2022 GERD (gastroesophageal reflux disease) 7 07/25/2022 Fatigue 09/09/2016 07/25/2022 Difficulty breathing 09/09/2016 07/25/2022 Cough 09/09/2016 07/25/2022 Apnea, sleep 03/19/2016 07/25/2022 Polycystic ovary 03/19/2016 07/25/2022 Migraine headache 03/19/2016 07/25/2022 Lung nodule 03/19/2016 07/25/2022 Kidney disorder 03/19/2016 07/25/2022 Sprain of shoulder 01/03/2013 07/25/2022 Complete tear of rotator cuff 01/03/2013 Arthralgia of shoulder 03/19/2012 3 Immunizations Immunization Administration Dates Next Due Influenza, Quadrivalent, Spl it, Preservative Free, Intramuscular 10/29/2017 Influenza, Trivalent, IM (MDV) 10/08/2016 Pneumococcal Polysaccharide PPV23 10/29/2017 Social History Tobacco Use Types Packs/Day Years Used Date Smoking Tobacco: Some Days Cigarettes 0.3 10 Started: 05/23/2009; Last attempted to quit: 05/24/2019 Smokeless Tobacco: Never Tobacco Cessation:Ready to Q uit: No; Counseling Given: Yes AUDIT-C Answer Date Recorded Q1: How often do you have a drink containing alc ohol? Monthly or less 12/12/2022 Q2: How many drinks containi ng alcohol do you have on a typical day when you are drinking? 1 or 2 12/12/2022 Q3: How often do you have si x or more drinks on one occasion? Never 12/12/2022 Personal Safety Answer Date Recorded Have you ever been in or are you currently in a harmful physical or emotional relationship or is someone making you feel afraid or unsafe? Denies 12/15/2022 Comments No Sex and Gender Information Value Date Recorded Sex Assigned at Not on file Legal Sex Female 3:39 AM DIRECTOR REGULATORY COMPLIANCE Gender Identity Female 10/06/2018 8:19 AM CDT Sexual Orientation Not on file Last Filed Vital Signs Vital Sign Reading Time Taken Comments Blood Pressure 104/64 12/15/2022 10:45 AM DIRECTOR REGULATORY COMPLIANCE Pulse 62 12/15/2022 10:45 AM DIRECTOR REGULATORY COMPLIANCE Temperature 36.5 C (97.7 F) 12/15/2022 9:11 AM DIRECTOR REGULATORY COMPLIANCE Respiratory Rate 20 12/15/2022 10:45 AM DIRECTOR REGULATORY COMPLIANCE Oxygen Saturation 98% 12/15/2022 10:45 AM DIRECTOR REGULATORY COMPLIANCE Inhaled Oxygen Concentration - - Weight 74.8 kg (165 lb) 12/15/2022 9:11 AM DIRECTOR REGULATORY COMPLIANCE Height 160 cm (5' 3) 12/15/2022 9:11 AM DIRECTOR REGULATORY COMPLIANCE Body Mass Index 29.23 12/15/2022 9:11 AM DIRECTOR REGULATORY COMPLIANCE Plan of Treatment Not on file Procedures Procedure Name Priority Date/Time Associated Diagnosis Comments XR TRANSFER OF OUTSIDE FILMS Routine 08/21/2024 12:00 AM CDT COLONOSCOPY 12/15/2022 10:01 AM DIRECTOR REGULATORY COMPLIANCE from Last 3 Months or Most Recently Relevant to Health Maintenance Results * XR Outside Reference (08/21/2024 12:00 AM CDT) Narrative [facility] - 08/22/2024 11:58 AM CDT This order has been auto-finalized and does not contain a result. us Provider Transcribed Order IMG XR PROCEDURES Fin al Result [facility] * COLONOSCOPY (12/15/2022 10:01 AM DIRECTOR REGULATORY COMPLIANCE) Anatomical Region Laterality Modality Other Narrative Procedure Note Michi Ayala MD - 12/15/2022 10:01 AM CST ENDOSCOPY LAB Patient Name: Taryn Krause Procedure Date: 12/15/2022 10:01 AM Admit Type: Outpatient Room: [facility] Date of : 1965 Instrument Name: [id number] Gender: Female Note Status: Finalized Procedure: Colonoscopy Indications: High risk colon cancer surveillance: Personalhistory of colonic polyps Providers: Michi Ayala M.D. Referring MD: Joey Zamora M.D. Medicines: Monitored Anesthesia Care Complications: No immediate complications. Estimated Blood Loss: Estimated blood loss: none. Procedure: Pre-Anesthesia Assessment: - The risks and benefits of the procedure and the sedation options and risks were discussed with the patient. All questions were answered and informed consent was obtained. - Immediately prior to administration ofmedications, the patient was re-assessed for adequacy to receive sedatives. The benefits, risks and alternatives of theprocedure and sedation were discussed and informed consentwas obtained. All questions were answered. Please referto the signed informed consent document in the medical record. The scope was passed under direct vision.The Colonoscope was introduced through the anus and advanced to the cecum, identified by appendiceal orifice and ileocecal valve. The colonoscopy was performed without difficulty. The patient tolerated the procedure well. The quality of the bowel preparation was good. The bowel preparation usedwas GoLYTELY via split dose instruction. Findings: The perianal and digital rectal examinations were normal. The colon (entire examined portion) appeared normal. The retroflexed view of the distal rectum and anal verge was normaland showed no anal or rectal abnormalities. Impression: - The entire examined colon is normal. - The distal rectum and anal verge are normal on retroflexion view. Recommendation: - Return to referring physician as previously scheduled. - Repeat colonoscopy in 5 years for surveillance. Attending Participation: I personally performed the entire procedure. Electronically signed by Michi Ayala M.D. Michi Ayala M.D. 12/15/2022 10:35:40 AM This document was signed electronically. Number of Addenda: 0 Note Initiated On: 12/15/2022 10:01 AM Scope Withdrawal Time: 0 hours 6 minutes 24 seconds Scope In: 10:11:46 AM Scope Out: 10:23:21 AM Michi Ayala MD ENDOSCOPY PROCEDURES Final Result from Last 3 Months or Most Recently Relevant to Health Maintenance Insurance BLUE [facility] CHOICE OOS BLUE ACC CHOICE OOS Advance Directives For more information, please contact: [phone] * Full Code (Latest Code Status on File) Date Activated Date Inactivated Comments 12/15/2022 9:05 AM 12/15/2022 3:50 PM * Full Code Date Activated Date Inactivated Comments 12/15/2022 9:05 AM 12/15/2022 9:05 AM * Full Code Date Activated Date Inactivated Comments 08/21/2022 9:02 AM 08/21/2022 2:02 PM * Full Code Date Activated Date Inactivated Comments 12/16/2021 8:41 AM 12/16/2021 2:44 PM * Full Code Date Activated Date Inactivated Comments 06/03/2021 8:28 AM 06/03/2021 2:23 PM Care Teams Deaf Teacher Relationship Specialty Start Date End Date Joey Zamora MD PCP - General 04/21/17
--- OUTSIDE RECORDS SUMMARY | 2024-09-12 08:25 | XMS_ITS | Clinical Summary ---
Author Organization [facility] Address [address] [place] [phone] Phone Care Team Providers Care Account Installation Specialist Name Role Phone Joey Zamora MD Primary Care Provider [phone] Medications No known medications Active Problems No known active problems Encounters Date Type Department Care Team Description 06/14/2024 External Device Data ST[facility] ABSTRACTION Provider, Abstract from Last 3 Months Family History Medical History Relation Name Comments Other Brother tobacco use Heart Disease Father High Cholesterol Father Hypertension Father Other Father tobacco use Other Maternal Aunt tobacco use High Cholesterol Maternal Grandmother Hypertension Maternal Grandmother Lung Cancer Maternal Uncle Other Maternal Uncle tobacco use High Cholesterol Mother Hypertension Mother Heart Disease Paternal Grandfather Hypertension Paternal Grandmother Relation Name Status Comments Brother Father Maternal Aunt Alive Maternal Grandmother Maternal Uncle Alive Mother Paternal Grandfather Paternal Grandmother Social History Tobacco Use Types Packs/Day Years Used Date Smoking Tobacco: Every Day Cigarettes Smokeless Tobacco: Never Comments:1/4 pack per day Alcohol Use Standard Drinks/Week Comments Yes 0 (1 standard drink = 0.6 oz pur e alcohol) Comments Unknown Sex and Gender Information Value Date Recorded Sex Assigned at Not on file Legal Sex Female 2:52 PM CDT Gender Identity Not on file Sexual Orientation Not on file Occupation Industry Job Start Date Job End Date Not on file Not on file Not on file Not on file Last Filed Vital Signs Vital Sign Reading Time Taken Comments Blood Pressure 111/76 06/02/2023 2:59 PM CDT Pulse 69 06/02/2023 2:59 PM CDT Temperature 37 C (98.6 F) 06/02/2023 2:59 PM CDT Respiratory Rate - - Oxygen Saturation - - Inhaled Oxygen Concentration - - Weight 79.8 kg (176 lb) 06/02/2023 2:59 PM CDT Height 160 cm (5' 3) 06/02/2023 2:59 PM CDT Body Mass Index 31.18 06/02/2023 2:59 PM CDT Plan of Treatment Health Maintenance Due Date Last Done Comments DTAP/TDAP/TD VACCINES (1 - Tdap) 1984 HEPATITIS B VACCINES (1 of 3 - 19+ 3-dose series) 1984 FIT-DNA Q 3 years 2010 FIT/FOBT Q 1 year 2010 Flex Sig/CT Colonography Q 5 years 2010 ZOSTER VACCINE (1 of 2) 08/30/2015 BREAST CANCER SCREENING 06/21/2023 06/21/19, 06/20/2022, 06/10/2021 INFLUENZA VACCINE (#1) 2024 10/29/2017, 2016 COLORECTAL SCREENING 12/15/2032 12/15/2022, 12/16/19 Colorectal Cancer Screening 12/15/2032 Insurance [facility] [employer] Care Teams Account Installation Specialist Relationship Specialty Start Date End Date Joey Zamora MD [address] [place] [address] PCP - General Internal Medicine 06/02/23
--- OUTSIDE RECORDS SUMMARY | 2024-09-12 08:25 | XMS_ITS | Continuity of Care Document ---
Author Organization [facility] Address [address] [facility] [address] [place] [address] Phone Care Team Providers Care Forestry Support Specialist Name Role Phone Manohar Powers MD [...] Diagnoses Date Provider Providers Copied on Encounter [facility], [address] [place] [address], [id number], tel:[phone] [facility] SacroiliitisBi lateral low back pain without sciatica Sep-1 8-201 [address] [place] [place] [address], [id number] . tel: [phone] OFFICE/OUTPAT IENT VISIT EST [facility], [address] [place] [address] [address], [place], [address], tel:[phone] [facility] SacroiliitisSp ondylosis without myelopathy or radiculopathy, cervical regionCervical giaLumbago with sciatica, right sideLumbago with sciatica, left sideOther chronic postprocedural pain Sep-1 3-201 8 [place] [place] [place] [address], [id number] . tel: [phone] Referring Provider: Manohar Powers [address] [place], [address] . tel:[phone] [facility], [address] [place] [address], [id number], [phone] O - [facility] [address] Lumbago with sciatica, right sideCervical radiculopathy at C7 [address] [place] [place] [place], [place], [id number] . tel: [phone] [facility], [address] [place] [address], [id number], [phone] [facility] Cervical radiculopathy at [id number] with sciatica, right side [address] [place] [address], [id number] . tel: [phone] [facility], [address] [place] [address], [id number], tel:[phone] [facility] Lumbosacral radiculopathy at L5 [address] [place] [place] [address], [id number] . tel: [phone] OFFICE CONSULTATION [facility], [address] [place] [address], [id number], tel:[phone] [facility] CervicalgiaLum bago with sciatica, right sideLumbosacra l radiculopathy at Y1Gydtkmuh radiculopathy at C7Body mass index (BMI) 29.0-29.9, adult [address] [place] [place] [address], [id number] . tel: [phone] Family History Family Member Type Diagnosis Age At Onset Maternal uncle Problem (finding) hypertension Maternal uncle Problem (finding) Alive and well Payers Payer name Insurance type Covered democrat ID Authoriza tion(s) Blue Access PPO E2 OT [id number] Social History Type Description Quantity Date Captured [...]
--- OUTSIDE RECORDS SUMMARY | 2024-09-12 08:25 | XMS_ITS | Clinical Summary ---
Author Organization [facility] Address [address] [place] [address] Care Team Providers Care Viscose Cellar Charge Hand Name Role Phone Unavailable Primary Care Provider Unavailabl e Source Comments [facility],non-owned Affiliates and Associated Physician Practices is amultiple site organization consisting of ambulatory clinics and hospital sitesin [place] and [place]. This disclosure is being madepursuant to the Care Everywhere program and may not contain all information available regarding this patient. 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 Gender Identity Not on file Sexual Orientation Not on file Last Filed Vital Signs Vital Sign Reading Time Taken Comments Blood Pressure 96/62 05/26/2015 8:09 AM CDT Pulse 63 05/26/2015 7:45 AM CDT Temperature 36.6 C (97.9 F) 05/26/2015 7:45 AM CDT Respiratory Rate 14 05/26/2015 7:45 AM CDT Oxygen Saturation 97% 05/26/2015 7:45 AM CDT Inhaled Oxygen Concentration - - Weight 65.8 kg (145 lb) 05/25/2015 3:14 PM CDT Height 160 cm (5' 3) 05/25/2015 3:14 PM CDT Body Mass Index 25.69 05/25/2015 3:14 PM CDT Plan of Treatment Health Maintenance Due Date Last Done Comments COLOGUARD (AGES 45-75) - COL ON CA SCREENING 1965 COLON MONITORING 1965 COLONOSCOPY - COLON CA SCREENING 1965 CT COLONOGRAPHY - COLON CA SCREENING 1965 Colorectal Cancer Screening 1965 FIT - COLON CA SCREENING 1965 FLEX SIG - COLON CA SCREENING 1965 HIV SCREENING 1980 HEPATITIS C SCREENING 08/25/1983 DTAP/TDAP/TD VACCINES (1 - Tdap) 1984 HEPATITIS B VACCINE (1 of 3 - 19+ 3-dose series) 1984 PNEUMOCOCCAL VACCINE 50+ (1 of 1 - PCV) 08/30/2015 ZOSTER VACCINE (1 of 2) 08/30/2015 LIPID TESTING 05/24/2020 05/25/2015 COVID-19 VACCINE (1 - 2023-2 5 season) 2023 DEPRESSION SCREENING 02/10/2024 INFLUENZA VACCINE (#1) 2024 HIB VACCINE Aged Out No longer eligi ble based on patient's age to complete this topic HPV VACCINE Aged Out No longer eligi ble based on patient's age to complete this topic MENINGOCOCCAL (Group B) VACC INE SHARED DECISION-MAKING Aged Out No longer eligibl e based on patient's age to complete this topic MENINGOCOCCAL GROUPS A/C/Y/W VACCINE Aged Out No longer eligible b ased on patient's age to complete this topic Procedures Procedure Name Priority Date/Time Associated Diagnosis Comments LIPID PROFILE Routine 05/25/2015 1:43 AM CDT from Last 3 Months or Most Recently Relevant to Health Maintenance Results * (ABNORMAL) LIPID PROFILE (05/25/2015 1:43 AM CDT) Cholesterol Total 181 <200 mg/dL [facility] HDL 58 >40 mg/dL [facility] Comment: ATP III Classification of HDL Cholesterol: <40 mg/dL: Considered a major risk factor. >60 mg/dL: Considered a negative risk factor. LDL Calculated 102(H) <100 mg/dL [facility] Comment: ATP III Classification of LDL Cholesterol: <100 mg/dL: Optimal 100 - 129 mg/dL: Near Optimal/Above Optimal 130 - 159 mg/dL: Borderline High 160 - 189 mg/dL: High >190 mg/dL: Very High Triglycerides 105 <150 mg/dL [facility] Comment: ATP III Classification of Triglycerides: <150 mg/dL: Normal 150 - 199 mg/dL: Borderline High 200 - 400 mg/dL: High >500 mg/dL: Very High Blood specimen (specimen) BLOOD SPECIMEN / Unknown 05/25/2015 1:43 AM CDT 05/25/2015 1:43 AM CDT us Damon Weller MD LAB - CHEMISTRY ORDERABLES Maya chaves Result [facility] [address] [phone] from Last 3 Months or Most Recently Relevant to Health Maintenance
--- OUTSIDE RECORDS SUMMARY | 2024-09-12 08:25 | XMS_ITS | Clinical Summary ---
Author Organization [facility] Address [address] [place] [address] Care Team Providers Care Ux Ui Designer Name Role Phone Joey Zamora MD Primary Care Provider [phone] Allergies No known active allergies Medications albuterol [...] (07/30/2021): Added automatically from request for surgery [id number] Osteoarthritis of right patellofemoral joint 11/202107/25/2022 Complex [...] cuff 01/03/2013 Arthralgia of shoulder 03/19/2012 3 Encounters Date Type Department Care Team Description 08/22/2024 Telephone [facility] Orthopedics and Sports Medicine [address] [address] Chris Casey MD Arm Injury 08/21/2024 Ancillary Procedure [facility] Outside Films from Last 3 Months Immunizations Immunization Administration Dates Next Due Influenza, Quadrivalent, Spl it, Preservative Free, Intramuscular 10/29/2017 Influenza, Trivalent, IM (MDV) 10/08/2016 Pneumococcal Polysaccharide PPV23 10/29/2017 Surgical History Surgery Date Site/Laterality Comments LIVER BIOPSY CERVICAL FUSION HYSTERECTOMY SHOULDER ARTHROSCOPY Right CHOLECYSTECTOMY UPPER GASTROINTESTINAL ENDOSCOPY COLONOSCOPY Medical History Medical History Date Comments Polycystic liver disease Emphysema of lung GERD (gastroesophageal reflux disease) Colon polyp Kidney stone Social History Tobacco Use Types Packs/Day Years [...] on file Legal Sex Female 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 Gender Identity Female 10/06/2018 8:19 AM CDT Sexual Orientation Not on file Obstetrics History Last Filed Vital Signs Vital Sign Reading Time Taken Comments Blood Pressure 104/64 12/15/2022 10:45 AM DRESSMAKER GARMENT FITTER Pulse 62 12/15/2022 10:45 AM DRESSMAKER GARMENT FITTER Temperature 36.5 C (97.7 F) 12/15/2022 9:11 AM DRESSMAKER GARMENT FITTER Respiratory Rate 20 12/15/2022 10:45 AM DRESSMAKER GARMENT FITTER Oxygen Saturation 98% 12/15/2022 10:45 AM DRESSMAKER GARMENT FITTER Inhaled Oxygen Concentration - - Weight 74.8 kg (165 lb) 12/15/2022 9:11 AM DRESSMAKER GARMENT FITTER Height 160 cm (5' 3) 12/15/2022 9:11 AM DRESSMAKER GARMENT FITTER Body Mass Index 29.23 12/15/2022 9:11 AM DRESSMAKER GARMENT FITTER Plan of Treatment Health Maintenance Due Date Last Done Comments Depression Screening 1965 Hepatitis C Screening 1965 Hepatitis B Screening 08/30/1983 Regular Well Visit/Exam 18-64 08/30/1983 Zoster Vaccine (1 of 2) 08/30/2015 Pneumococcal vaccine <65 (2 of 2 - PCV) 10/29/2018 10/29/2017 Covid-19 Vaccine (3 - 2023-2 5 season) 2023 10/07/2020, 09/16/2020 Influenza Vaccine (#1) 2024 3, 01/16/2022, 12/25/2020, Additional history exists Breast Cancer Screening-Mammogram 01/13/2025 01/14/2024, 01/14/2024, 06/20/2022, Additional history exists DTaP/Tdap/Td Vaccine (2 - Td or Tdap) 01/29/2031 01/29/2021 Colon Cancer Screening-Colonoscopy 12/15/2032 12/15/2022 Colon Cancer Screening-CT Colonography Discontinued 12/15/2022 Colon Cancer Screening-DNA Stool Discontinued 12/16/19 Colon Cancer Screening-FIT Discontinued 12/15/2022 Colon Cancer Screening-Sigmoidoscopy Discontinued 12/15/2022 Procedures Procedure Name Priority Date/Time Associated Diagnosis Comments XR TRANSFER OF OUTSIDE FILMS Routine 08/21/2024 12:00 AM CDT COLONOSCOPY 12/15/2022 10:01 AM DRESSMAKER GARMENT FITTER from Last 3 Months or Most Recently Relevant to Health Maintenance Results * XR Outside Reference (08/21/2024 12:00 AM CDT) Narrative [facility] - 08/22/2024 11:58 AM CDT This order has been auto-finalized and does not contain a result. us Provider Transcribed Order IMG XR PROCEDURES Fin al Result [facility] * COLONOSCOPY (12/15/2022 10:01 AM DRESSMAKER GARMENT FITTER) Anatomical Region Laterality Modality Other Narrative Procedure Note Michi Ayala MD - 12/15/2022 10:01 AM CST ENDOSCOPY LAB Patient Name: Taryn Krause Procedure Date: 12/15/2022 10:01 AM Admit Type: Outpatient Room: [facility] Date of : 1965 Instrument Name: [id number] Gender: Female Note Status: Finalized Procedure: Colonoscopy [...] Most Recently Relevant to Health Maintenance Insurance [employer] Advance Directives For more information, please contact: [phone] * Full Code (Latest Code Status on [...] 8:28 AM 06/03/2021 2:23 PM Care Teams Ux Ui Designer Relationship Specialty Start Date End Date Joey Zamora MD PCP - General 04/21/17
== END 2024-09-12 08:18 | disposition home or self-care (01) ==
LOC: CHSIMG 08:21
PROVIDERS: PCP Family Medicine; Visit Provider Orthopaedic Surgery
DX: S52.122A Displaced fracture of head of left radius, initial encounter for closed fracture (principal)
CPT/HCPCS: 73080

== ENCOUNTER 2024-10-24 07:53 | Outpatient (CLI) | payer BC, SELFPAY ==
--- NOTE | ~2024-10-24 | XR_ITS ---
X-rays left elbow Indication: S52.122D Comparison: 1 month prior Technique: 4 views left elbow Findings/Impression: 1. No significant change in appearance or alignment of mildly depressed radial head fracture. 2. Otherwise no acute findings or significant change. Reviewed, dictated and finalized at location R.
== END 2024-10-24 07:54 | disposition home or self-care (01) ==
LOC: CHSIMG 07:55
PROVIDERS: PCP Family Medicine; Visit Provider Orthopaedic Surgery
DX: S52.122D Displaced fracture of head of left radius, subsequent encounter for closed fracture with routine healing (principal)
CPT/HCPCS: 73080

== ENCOUNTER 2024-11-07 07:49 | Outpatient (CLI) | payer BC, SELFPAY ==
--- OUTSIDE RECORDS SUMMARY | 2017-10-27 10:15 | XMS_ITS | Continuity of Care Document ---
Author Organization [facility] Address [address] [place] [address] Phone Care Team Providers Care Lean Manufacturing Specialist Name Role Phone Manohar Powers MD Unavailable Unavailable Allergies, Adverse Reactions, Alerts Substance Reaction Status Criticality No Known Allergies Active No Inform ation Medications Medication Instructions Dosage Effective Dates (start - stop) Status Comments No Drug Therapy Prescribed Procedures Procedure Date OFFICE/OUTPATIENT VISIT EST OFFICE CONSULTATION Advance Directives Directive Yes / No Effective Date File Name No Information Encounters Encounter Description Practice Location Reason(s) For Visit Diagnoses Date Provider Providers Copied on Encounter [facility], [address] [place] [address], [id number], tel:[phone] [facility] SacroiliitisBi lateral low back pain without sciatica Sep-1 8-201 [address] [place], [place], [id number] . tel: [phone] OFFICE/OUTPAT IENT VISIT EST [facility], [address] [place] [address] [address], [place], [address], tel:[phone] [facility] SacroiliitisSp ondylosis without myelopathy or radiculopathy, cervical regionCervical giaLumbago with sciatica, right sideLumbago with sciatica, left sideOther chronic postprocedural pain Sep-1 3-201 [address] [place] [address], [id number] . tel: [phone] Referring Provider: Manohar Powers [address] [place], [address] . tel:[phone] [facility], [address] [place] [address], [address], [phone] O - [facility] [address] Lumbago with sciatica, right sideCervical radiculopathy at C7 [address] [place], [place], [id number] . tel: [phone] [facility], [address] [place] [address], [id number], [phone] [facility] Cervical radiculopathy at [id number] with sciatica, right side [address] [place] [address], [id number] . tel: [phone] [facility], [address] [place] [address], [address], tel:[phone] [facility] Lumbosacral radiculopathy at L5 [address] [place] [address], [id number] . tel: [phone] OFFICE CONSULTATION [facility], [address] [place] [address], [address], tel:[phone] [facility] CervicalgiaLum bago with sciatica, right sideLumbosacra l radiculopathy at F6Eikkwxdu radiculopathy at C7Body mass index (BMI) 29.0-29.9, adult [address] [place] [address], [id number] . tel: [phone] Family History Family Member Type Diagnosis Age At Onset Maternal uncle Problem (finding) hypertension Maternal uncle Problem (finding) Alive and well Payers Payer name Insurance type Covered alliance party ID Authoriza tion(s) Blue Access PPO E2 OT [id number] Social History Type Description Quantity Date Captured Comments Alcohol Use Details Unknown Caffeine Use Details Unknown Tobacco Use Status Smoking Status No Information Sex Female Chief Complaint And Reason For Visit No Information Reason For Referral Reason For Referral No Information Plan Of Treatment Date Type Action Status Goal Tobacco cessation counseling completed Goal Smoking cessation education completed Referral Ordered: Neurology (related to Other polyneuropathy) ordered Referral Ordered: Referrals: Neurology. Evaluate and treat ordered Referral Ordered: INJECT SACROILIAC JOINT Appointment date/timeframe: 10/27/2017 ordered Referral Ordered: MRI SPI CANAL&CNTS LMBR C-MATRL Appointment date/timeframe: 10/15/2017 ordered Referral Ordered: MRI SPI CANAL&CNTS CRV C-MATRL Appointment date/timeframe: 10/15/2017 ordered Referral Ordered: MRI SPI CANAL&CNTS CRV C-MATRL spine, cervical ordered Referral Ordered: MRI SPI CANAL&CNTS LMBR C-MATRL spine, lumbar ordered Nutrition Recommendation Nutrition / feed ing management completed History Of Present Illness Encounter Date Complaint History Of Prese nt Illness No Information Functional Status Date Functional Assessmen t No Information Medications Administered Medication Instructions Dosage Effective Dates (start - stop) Status Comments No Drug Therapy Prescribed Instructions Date Instruction Additional Infor mation Activity as tolerated. Related t o Sacroiliitis Avoid prolonged bed rest. Relate d to Sacroiliitis Take medication as prescribed. R elated to Sacroiliitis Activity as tolerated. Related t o Cervical radiculopathy at C7 Avoid prolonged bed rest. Relate d to Cervical radiculopathy at C7 Take medication as prescribed. R elated to Cervical radiculopathy at C7 Avoid prolonged bed rest. Relate d to Cervicalgia Activity as tolerated. Related t o Cervicalgia Take medication as prescribed. R elated to Cervicalgia Giving encouragement to exercise Related to Body mass index (BMI) 29.0-29.9, adult Assessments Type Assessment Date assessment Sacroiliitis assessment Bilateral low back pain without sciatica Patient Care Teams Name Effective Dates (start - stop) Status Members No Information
--- NOTE | ~2024-11-07 | XR_ITS ---
EXAMINATION: XR knee RT min 4V, 11/07/2024 8:00 CDT HISTORY: M25.561 - Pain in right knee COMPARISON: No comparisons available. Findings: Postsurgical changes, no fracture identified. Moderate tricompartmental degenerative change Soft tissues unremarkable. Impression: No acute fracture or malalignment. Reviewed, dictated and finalized at location P. Impression: No acute fracture or malalignment.
--- OUTSIDE RECORDS SUMMARY | 2024-11-07 07:59 | XMS_ITS | Clinical Summary ---
Author Organization [facility] Address [address] [place] [address] Care Team Providers Care Barrel Cooper Name Role Phone Unavailable Primary Care Provider Unavailabl e Source Comments [facility],non-owned Affiliates and Associated Physician Practices is amultiple site organization consisting of ambulatory clinics and hospital sitesin [place], [place], [place] and [place]. This disclosure is being madepursuant to the Care Everywhere program and may not contain all information available regarding this patient. 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 >60 mg/dL: Considered a negative risk factor. LDL Calculated 102(H) <100 mg/dL [facility] Comment: ATP III Classification of LDL Cholesterol: <100 mg/dL: Optimal 100 - 129 mg/dL: Near Optimal/Above Optimal 130 - 159 mg/dL: Borderline High 160 - 189 mg/dL: High >190 mg/dL: Very High Triglycerides 105 <150 mg/dL [facility] Comment: ATP III Classification of Triglycerides: <150 mg/dL: Normal 150 - 199 mg/dL: Borderline High 200 - 400 mg/dL: High >500 mg/dL: Very High Blood specimen (specimen) BLOOD SPECIMEN / Unknown 05/25/2015 1:43 AM CDT 05/25/2015 1:43 AM CDT us Damon Weller MD LAB - CHEMISTRY ORDERABLES Maya chaves Result [facility] [address] [phone] from Last 3 Months or Most Recently Relevant to Health Maintenance
--- OUTSIDE RECORDS SUMMARY | 2024-11-07 08:00 | XMS_ITS | Clinical Summary ---
Author Organization [facility] Address [address] [place] [phone] Phone Care Team Providers Care Aerospace Physiological Technician Name Role Phone Joey Zamora MD Primary Care Provider [phone] Medications No known medications Active Problems No known active problems Family History Medical History Relation Name Comments [...] 12/15/2022, 12/16/19 Colorectal Cancer Screening 12/15/2032 Insurance [employer] Care Teams Aerospace Physiological Technician Relationship Specialty Start Date End Date Joey Zamora MD [address] [place] [address] PCP - General Internal Medicine 06/02/23
--- OUTSIDE RECORDS SUMMARY | 2024-11-07 08:00 | XMS_ITS | Clinical Summary ---
Author Organization [facility] Address [address] [place] [address] Care Team Providers Care Instructional Developer Name Role Phone Joey Zamora MD Primary Care Provider [phone] Allergies No known active allergies Medications albuterol [...] (07/30/2021): Added automatically from request for surgery [id number] Osteoarthritis of right patellofemoral joint 11/202107/25/2022 Complex [...] Type Department Care Team Description 08/22/2024 Telephone [facility] Medical Group Orthopedics and Sports Medicine [address] [address] Chris Casey MD Arm Injury [...] on file Legal Sex Female 3:39 AM 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 APPRENTICE Gender Identity Female 10/06/2018 8:19 AM CDT Sexual Orientation Not on file Obstetrics History Last Filed Vital Signs Vital Sign Reading Time Taken Comments Blood Pressure 104/64 12/15/2022 10:45 AM PAPERHANGER APPRENTICE Pulse 62 12/15/2022 10:45 AM PAPERHANGER APPRENTICE Temperature 36.5 C (97.7 F) 12/15/2022 9:11 AM PAPERHANGER APPRENTICE Respiratory Rate 20 12/15/2022 10:45 AM PAPERHANGER APPRENTICE Oxygen Saturation 98% 12/15/2022 10:45 AM PAPERHANGER APPRENTICE Inhaled Oxygen Concentration - - Weight 74.8 kg (165 lb) 12/15/2022 9:11 AM PAPERHANGER APPRENTICE Height 160 cm (5' 3) 12/15/2022 9:11 AM PAPERHANGER APPRENTICE Body Mass Index 29.23 12/15/2022 9:11 AM PAPERHANGER APPRENTICE Plan of Treatment Health Maintenance Due Date Last Done Comments Depression Screening 1965 Hepatitis C Screening 1965 Hepatitis B Screening 08/30/1983 Regular Well Visit/Exam 18-64 08/30/1983 Zoster Vaccine (1 of 2) 08/30/2015 Pneumococcal vaccine <65 (2 of 2 - PCV) 10/29/2018 10/29/2017 Covid-19 Vaccine (3 - 2024-2 6 season) 2024 10/07/2020, 09/16/2020 Influenza Vaccine (#1) 2024 3, [...] 12:00 AM CDT COLONOSCOPY 12/15/2022 10:01 AM PAPERHANGER APPRENTICE from Last 3 Months or Most Recently Relevant to Health Maintenance Results * XR Outside Reference (08/21/2024 12:00 AM CDT) Narrative [facility] - 08/22/2024 11:58 AM CDT This order has been auto-finalized and does not contain a result. us Provider Transcribed Order IMG XR PROCEDURES Fin al Result [facility] * COLONOSCOPY (12/15/2022 10:01 AM PAPERHANGER APPRENTICE) Anatomical Region Laterality Modality Other Narrative Procedure Note Michi Ayala MD - 12/15/2022 10:01 AM CST ENDOSCOPY LAB Patient Name: Taryn Krause Procedure Date: 12/15/2022 10:01 AM Admit Type: Outpatient Room: [facility] Date of : 1965 Instrument Name: [id number] [...] Most Recently Relevant to Health Maintenance Insurance [employer] Advance Directives For more information, please contact: [phone] * Full Code (Latest Code Status on [...] 8:28 AM 06/03/2021 2:23 PM Care Teams Instructional Developer Relationship Specialty Start Date End Date Joey Zamora MD PCP - General 04/21/17
== END 2024-11-07 07:50 | disposition home or self-care (01) ==
PROVIDERS: PCP Family Medicine; Visit Provider Orthopaedic Surgery
DX: M25.561 Pain in right knee (principal)
CPT/HCPCS: 73564

== ENCOUNTER 2024-11-24 10:00 | Outpatient (RCR) | payer BC, SELFPAY ==
--- NOTE | 2024-11-24 11:10 | OPREHPOC ---
Outpatient Therapy Plan of Care This is a Multidisciplinary Plan of Care that may contain components documented by all disciplines (PT, OT, and ST.) PT Problem 1 PT Problem #1 Knowledge Deficit PT Goal 1 Goal / Goal Update Independent and compliant with HEP. Target Visit 2 PT Problem 2 PT Problem #2 Impaired Strength PT Goal 1 Goal / Goal Update Pt to improve bilat hip and knee strength to 5/5 without pain. Target Visit 8 PT Problem 3 PT Problem #3 Impaired Functional Mobility PT Goal 1 Goal / Goal Update Pt to report 20% reduction in perceived disability on LEFS. Pt to report improved ability to stand for prolonged periods at work. Pt to be able to ascend stairs reciprocally. Target Visit 8
--- NOTE | 2024-11-24 11:10 | PTOPEVAL1 ---
Assessment and note entered by Janeth Torres, PT Evaluation Information Assessment Status Evaluation ICD-10 Condition Codes (PT) Pain in right knee M25.561 Other ICD-10 Condition Codes ( S83.519A PT) Onset 11/07/2024 Subjective Information Pt reports she had surgery on her R knee in 2020 to repair her ACL and LCL. She did therapy after that surgery but reports her knee has never been right. She reports it's never been very strong, it gives out on her frequently and is always throbbing. She reports her doctor gave her a brace which helps a little bit and she wears it at all times. She reports the doctor also told her she will need a knee replacement soon. She states her pain is around 4/10 right now and it can get up to an 8/10 where the pain shoots from her knee to the bottom of her foot. Reported Pain Level Pain Score 4: Self Report Assessment PT Clinical Summary Mrs. Krause is a 57 yo female presenting to skilled PT evaluation for R knee pain. She has a history of R ACL and LCL reconstruction surgery and presents today with increased laxity, hypermobility and instability of the knee. She also demonstrates moderate deficits in hip and knee strength bilaterally and gait deficits including knee hyperextension during stance phase and [place] pattern. Her pain affects her ability to stand for long time periods and climb stairs efficiently. She will benefit from skilled PT intervention to address these deficits and improve functional independence. Plan of Care Interventions Electrical Stimulation,Gait Training,Hot Pack/Cold Pack,Intermittent Compression Pump,Manual Therapy ,Neuro Re-education,Patient/Caregiver Education, Therapeutic Activities,Therapeutic Exercise,Self- Care/Home Management Other Interventions Dry needling PT Services Indicated Yes Treatment Frequency and 2x/week for 8 visits Duration These treatments will address the objective and functional deficits as defined above. The patient will be advanced safely and appropriately in order for the patient to progress towards his/her prior level of function. Additional exercises will be introduced and as well as a comprehensive home exercise program upon discharge, if needed, ?to ensure carryover of functional gains achieved in the clinic. This treatment plan has been reviewed and agreement upon by the patient.
--- NOTE | 2024-12-06 16:20 | PCPTNOTE ---
Patient called & cancelled scheduled appointment this date.
== END 2024-12-13 20:00 | disposition home or self-care (01) ==
LOC: CHSPT 10:00
PROVIDERS: Visit Provider Orthopaedic Surgery
DX: M25.561 Pain in right knee (principal); S83.519A Sprain of anterior cruciate ligament of unspecified knee, initial encounter
CPT/HCPCS: 97014; 97110; 97150; 97161; 97530; G0283